=== PATIENT | male | born 1975 | race African-American/Black ===

== ENCOUNTER 2018-09-23 18:06 | Emergency (ER) | payer OTHER ==
[~2018-09-23] VITALS: Ht 177.8 cm; Wt 93.4 kg
[2018-09-23 18:16] VITALS: BP 123/71
--- NOTE | 2018-09-23 18:26 | Emergency Room Report ---
History of Present Illness General Chief Complaint: Upper Respiratory Illness Source: Patient Present Illness HPI 43-year-old male with no significant past medical history her complaining of a few days of sore throat, cough with green phlegm, congestion, and shortness of breath when coughing. Patient isn't marijuana use and reports more shortness of breath and smoking marijuana. Denies fevers chills, ear pain, sinus pressure , palpitations, chest pain, nausea vomiting, abdominal pain, and all other associated symptoms. Patient has taken ccub-[id number]-[id number] cough medication with no relief denies recent travel and sick contact Allergies: Coded Allergies: No Known Allergies (Unverified , 09/23/18) Patient History Past Medical History: see triage record Past Surgical History: none Social History: Reports: smoking - marijuana Immunizations: UTD Reviewed Nursing Documentation: PMH: Agreed; PSxH: Agreed Nursing Documentation-PMH Past Medical History: No Stated History Review of Systems All Other Systems: negative except mentioned in HPI Physical Exam Vital Signs Date Time Temp Pulse Resp B/P (MAP) Pulse Ox O2 Delivery O2 Flow Rate FiO2 09/23/18 18:09 98.1 94 17 125/75 96 Room Air Sp02 EP Interpretation: reviewed, normal General Appearance: normal inspection, well appearing, no apparent distress, alert Head: normocephalic, atraumatic Eyes: bilateral eye normal inspection, bilateral eye PERRL ENT: no angioedema, normal voice, TMs + canals normal, nasal congestion, pharyngeal erythema, tonsillar exudate Neck: normal inspection, full range of motion, supple Respiratory: normal inspection, lungs clear, no rhonchi, no retraction, no wheezing Cardiovascular #1: normal inspection, no edema, no murmur Gastrointestinal: normal inspection, non tender, soft Rectal: deferred Genitourinary: deferred Musculoskeletal: normal inspection, back normal Neurologic: normal inspection, alert, oriented x3 Psychiatric: normal inspection, judgement/insight normal, memory normal Skin: normal inspection, normal color, no rash, warm/dry Lymphatic: normal inspection, no adenopathy Medical Decision Making PA Attestation all diagnoses and treatment plans were reviewed and discussed with my supervising physician Dr. Darnell Diagnostic Impression: Primary Impression: Strep pharyngitis Additional Impression: Marijuana use ER Course 43-year-old male with no significant past medical history her complaining of a few days of sore throat, cough with green phlegm, congestion, and shortness of breath when coughing. Patient isn't marijuana use and reports more shortness of breath and smoking marijuana. Denies fevers chills, ear pain, sinus pressure , palpitations, chest pain, nausea vomiting, abdominal pain, and all other associated symptoms. Patient has taken [id number]-ubq-sufxocx cough medication with no relief denies recent travel and sick contact Ddx considered but are not limited to strep pharyngitis, URI, laryngitis Vital signs: are WNL, pt. is afebrile H&PE are most consistent with strep pharyngitis, marijuana use ORDERS:amoxicillin, Phenergan DM ED INTERVENTIONS: None required at this time. DISCHARGE: At this time pt. is stable for d/c to home. Will provide printed patient care instructions, and any necessary prescriptions. Care plan and follow up instructions have been discussed with the patient prior to discharge. Last Vital Signs Date Time Temp Pulse Resp B/P (MAP) Pulse Ox O2 Delivery O2 Flow Rate FiO2 09/23/18 18:09 98.1 94 17 125/75 96 Room Air Disposition: HOME, SELF-CARE Condition: Stable Scripts D-Methorphan Hb/Prometh Hcl* (PROMETHAZINE-DM SYRUP*) 118 Ml Syrup 5 ML ORAL Q4H PRN for For Cough, #120 ML 0 Refills Prov: Joshua Feng 09/23/18 Amoxicillin* (AMOXIL*) 500 Mg Capsule 500 MG ORAL EVERY 12 HOURS for 7 Days, #14 CAP Prov: Joshua Feng 09/23/18 Patient Instructions: Strep Throat, [id number] Additional Instructions: take medication as directed, rest and hydrate, avoid operating machinery when taking Phenergan DM Joshua Feng Sep 23, 2018 18:25
[2018-09-23] MEDS ORDERED: PROMETHAZINE-D118 ML ORAL (18:27)
[2018-09-23] MEDS ORDERED: AMOXICILLIN500 MG ORAL (18:27)
[2018-09-23 18:37] VITALS: BP 122/71
== END 2018-09-23 18:37 | disposition home or self-care (01) ==
LOC: EMR 18:30
DX: J02.0 Streptococcal pharyngitis (principal); B95.5 Unspecified streptococcus as the cause of diseases classified elsewhere; F12.90 Cannabis use, unspecified, uncomplicated
CPT/HCPCS: 99283